=== PATIENT | female | born 1950 | race Caucasian/White ===

== ENCOUNTER → 2018-06-11 13:55 | Outpatient (CLI) | payer OTHER, SELFPAY ==
[2018-06-11 17:46] LABS: TSH w/ Reflex to FT4 3.81 uIU/mL (0.47-4.68)
== END ==
PROVIDERS: PCP Family Medicine; Visit Provider Family Medicine
DX: R79.89 Other specified abnormal findings of blood chemistry (principal)
CPT/HCPCS: 84443

== ENCOUNTER → 2018-10-31 11:44 | Outpatient (CLI) | payer OTHER, SELFPAY ==
--- NOTE | 2018-10-31 | DI.MG.S_ITS ---
BILATERAL DIGITAL SCREENING MAMMOGRAM 3D/2D WITH CAD: 10/31/2018 CLINICAL: Routine screening. Family history of breast cancer. Comparison is made to exams dated: 11/11/2016 mammogram, 08/31/2015 mammogram, and 04/02/2013 mammogram - [facility]. The tissue of both breasts is heterogeneously dense. This may lower the sensitivity of mammography. Current study was also evaluated with a Computer Aided Detection (CAD) system. No significant masses, calcifications, or other findings are seen in either breast. There has been no significant interval change. IMPRESSION: NEGATIVE There is no mammographic evidence of malignancy. A 1 year screening mammogram is recommended. This exam was interpreted at Station ID: [id number]. NOTE: For mammograms, a report in lay terms will be sent to the patient. Approximately 15% of breast malignancies will not be visualized mammographically. In the management of a palpable breast mass, a negative mammogram must not discourage biopsy of a clinically suspicious lesion. Electronically Signed By: Rajesh horner/laquita:10/31/2018 16:44:43 letter sent: Normal Exam ACR BI-RADS Category 1: Negative 3341F
== END ==
PROVIDERS: PCP Family Medicine; Visit Provider Family Medicine
DX: Z12.31 Encounter for screening mammogram for malignant neoplasm of breast (principal); Z80.3 Family history of malignant neoplasm of breast
CPT/HCPCS: 77063; 77067

== ENCOUNTER → 2019-11-09 14:03 | Outpatient (CLI) | payer OTHER, SELFPAY ==
--- NOTE | 2019-11-09 | DI.MG.S_ITS ---
BILATERAL DIGITAL SCREENING MAMMOGRAM 3D/2D WITH CAD: 11/09/2019 CLINICAL: Routine screening. Family history of breast cancer. Comparison is made to exams dated: 10/31/2018 mammogram, 11/11/2016 mammogram, and 08/31/2015 mammogram - [facility]. The tissue of both breasts is heterogeneously dense. This may lower the sensitivity of mammography. Current study was also evaluated with a Computer Aided Detection (CAD) system. No significant masses, calcifications, or other findings are seen in either breast. There has been no significant interval change. IMPRESSION: NEGATIVE There is no mammographic evidence of malignancy. A 1 year screening mammogram is recommended. This exam was interpreted at Station ID: [id number]. NOTE: For mammograms, a report in lay terms will be sent to the patient. Approximately 15% of breast malignancies will not be visualized mammographically. In the management of a palpable breast mass, a negative mammogram must not discourage biopsy of a clinically suspicious lesion. Electronically Signed By: Rajesh horner/laquita:11/12/2019 14:04:51 letter sent: Normal Exam ACR BI-RADS Category 1: Negative 3341F
== END ==
PROVIDERS: Family Provider Physician Assistant; PCP Family Medicine; Visit Provider Family Medicine
DX: Z12.31 Encounter for screening mammogram for malignant neoplasm of breast (principal)
CPT/HCPCS: 77063; 77067

== ENCOUNTER → 2020-06-27 13:33 | Outpatient (CLI) | payer MEDICARE, SELFPAY ==
[2020-06-28 17:04] LABS: COVID19 Sendout Not Detected (Not Detect)
== END ==
PROVIDERS: Family Provider Physician Assistant; PCP Family Medicine; Visit Provider Physician Assistant
DX: Z11.59 Encounter for screening for other viral diseases (principal)
CPT/HCPCS: 87635

== ENCOUNTER 2020-06-30 13:11 | Day surgery (SDC) | payer MEDICARE, SELFPAY ==
[2020-06-30] MEDS: SODIUM CHLORIDE 0.9% 1,000 ML 200 ML IV (13:38)
[2020-06-30 13:43] VITALS: BP 144/85; PULSE 68; RESP 20; TEMP 36.8; O2SAT 98; BMI 27.6
--- NOTE | 2020-06-30 14:21 | PM.HP.1 ---
History of Present Illness History of Present Illness Date Patient Seen: 06/30/20 Time Patient Seen: 14:52 Chief complaint: SCREENING COLONOSCOPY Narrative: This is a 70-year-old woman with history of screening colonoscopy 10 years ago, which was reported as normal. She denies any symptoms of blood in the stool, dark colored stool, unexplained abdominal pain, or unexplained weight loss. She otherwise feels she is in good health other than some sleep disturbance, and possible sleep apnea. ROS Thirteen system review is otherwise negative other than as mentioned below and in HPI. PE: GENERAL: Well groomed and cooperative. Appears stated age. Answers questions promptly and appropriately. Vital signs noted. HENT: Normocephalic, atraumatic. Hearing intact. EYES: Conjunctiva pink, sclera white, no periorbital swelling. CARDIOVASCULAR: Regular rate. No pedal edema. RESPIRATORY: Non-tachypneic, breathing comfortably on room air. GASTROINTESTINAL: Abdomen soft and non-distended GENITALURINARY: No flank tenderness. MUSCULOSKELETAL: Equal tone and mass bilaterally. SKIN: Warm, dry, soft, appropriate color for ethnicity. No other lesions, rashes, or wounds. NEURO: Alert and Oriented X 3. No gross sensory deficits, or cognitive issues. PSYCH: Appropriate affect and mood. Patient History Medical History Chicken pox (Resolved 1953) Chronic back pain (Chronic 2013) CTS (carpal tunnel syndrome) (Chronic) Depression (Chronic 1988) Fractures (Resolved) Genital warts (Resolved 1978) Herpes (Chronic 1981) History of hysterosalpingogram (Resolved ~1987) History of one miscarriage (Resolved 1989) History of one miscarriage (Resolved 1988) Infertility (Chronic 1985) Lumbar spinal stenosis (Chronic 2007) Measles (Resolved 1954) Mumps (Resolved) Rubella (Resolved) Vertigo (Resolved 1997) Surgical History Anesthesia (Resolved) History of tonsillectomy (Resolved 1977) Family & Social History Family History Father Congestive heart failure Prostate cancer Kidney failure Mother Essential hypertension Heart disease Grandfather No problems noted. Grandmother No problems noted. Grandfather Heart attack Grandmother No problems noted. Brother Alcoholism Brother Arthritis Skin cancer Depression Colon polyps Sister Colon polyps Depression Breast lump Social History: household members none lives independently Yes caregiver/support person No Tobacco & Substance use: Smoking Status Former smoker alcohol intake current alcohol intake frequency 0-2 drinks per day Substance Use Type marijuana Meds Home Medications and Allergies Home Medications Medication Instructions Recorded Confirmed Type [VITAMIN D3] 500 iu PO TID #0 06/20/16 06/23/20 History fluoxetine 40 mg capsule 40 mg PO DAILY 06/11/18 06/30/20 History methylphenidate HCl 10 mg biphasic 20 mg PO DAILY cap 01/14/20 06/30/20 History 50-50 capsule,extended release valacyclovir 1 gram tablet 1,000 mg PO QDAY #90 tab 06/23/20 06/30/20 Rx sodium,potassium,mag sulfates 17.5 177 ml PO DAILY #354 ml 06/24/20 Rx gram-3.13 gram-1.6 gram oral soln Allergies Allergy/AdvReac Type Severity Reaction Status Date / Time No Known Drug Allergies Allergy Verified 06/30/20 14:01 Exam Vital Signs (past 8 hours): - 06/30/20 13:43 Temperature 98.2 F Pulse Rate 68 Respiratory Rate 20 Blood Pressure 144/85 H Pulse Oximetry 98 Oxygen Delivery Method Room Air Assessment & Plan Assessment and plan (1) At average risk for colon cancer: Status: Acute Assessment & Plan narrative: Risks and benefits of screening colonoscopy and possible polypectomy were discussed with the patient including risk of bleeding, perforation, need for additional procedures, risks of anesthesia. The patient desires to proceed with the colonoscopy procedure. COVID-19 COVID-19 status: Negative Result date/Date tested (Pos, Neg/Pending): 06/27/20 Time Spent With Patient Time with patient: 15-24 minutes Quality VTE Deep Vein Thrombosis/Pulmonary Embolism Present on Admission: No
[2020-06-30] MEDS: MIDAZOLAM 5 MG/5 ML VIAL IV ×3 (15:00→15:07)
[2020-06-30] MEDS: fentaNYL 250 MCG/5 ML INJ IV ×2 (15:00→15:05)
--- NOTE | 2020-06-30 15:30 | PM.OP.ENDO ---
Operative Date/Time/Diagnoses Date of procedure: 06/30/20 Time of procedure: 15:30 Pre-op diagnosis: Average risk for colon cancer Post-op diagnosis: other (single benign appearing polyp at 35cm, diverticulosis) Procedure & Clinicians Study performed: Colonoscopy, procedural sedation performed by the endoscopist, polypectomy with cold snare Same procedure as scheduled: Yes Indications: Average risk for colon cancer, last colonoscopy 10 years ago Surgeon: Rhianna Long Procedure Notes SCOAP/Timeout: Performed Procedure in detail: The patient was brought to the room and placed in left lateral decubitus position with all bony prominences padded. A time-out was performed and then the patient was given procedural sedation starting with 2 mg of Versed and 100 mcg of fentanyl. Total of 4 mg of Versed and 150 micro g of fentanyl were given for the entire procedure. Vitals were monitored throughout the procedure. Her heart rate and blood pressure remained normal. The patient had multiple episodes of apnea during the procedure, and required a nasal trumpet in order to maintain her oxygen saturation. Once adequately sedated, the procedure was begun. A rectal exam was performed revealing no abnormalities. The colonoscope was then introduced to the rectum and advanced to the cecum in the usual fashion. The cecum was identified by the appendiceal orifice, the mucosal tri-fold, and the ileocecal valve. The scope was then retracted while rotating side to side and examining each mucosal fold. Moderate diverticulosis was seen in the descending and sigmoid colon. There was a small polyp sitting between 2 diverticula, which was removed with cold snare. The polyp removed but not retrieved, as it fell into the colon after it was snared off, and could not be found. After traversing the colon multiple times looking for it, we ultimately decided to discontinue the procedure as the patient was having episodes of apnea and the polyp appeared very early abnormality. At the conclusion of the procedure retroflexion was performed and small grade 1-2 internal hemorrhoids without stigmata of bleeding were seen. The scope was then withdrawn from the rectum the procedure was concluded. The patient tolerated the procedure well and was transferred to the PACU in stable condition. Scope withdrawal time: 17 Sedation minutes: 29 Findings: diverticulosis and polyp Specimen(s): none sent Complications: none Impression: Single mine appearing polyp, moderate diverticulosis throughout the descending and sigmoid colon Post-procedure Recommendations: Colonscopy in 5 years Follow up: as needed Disposition: PACU
[2020-06-30 15:38] VITALS: BP 172/95; PULSE 61; RESP 14; TEMP 36.7; O2SAT 96
[2020-06-30 15:42] VITALS: BP 143/80; PULSE 59; RESP 14; O2SAT 96
[2020-06-30 15:56] VITALS: BP 122/71; PULSE 67; RESP 14; TEMP 35.8; O2SAT 96
== END 2020-06-30 16:19 | disposition home or self-care (01) ==
PROVIDERS: Family Provider Physician Assistant; PCP Family Medicine; Referring Provider Family Medicine; Visit Provider Surgery
PROC: 0DJD8ZZ Inspection of Lower Intestinal Tract, Via Natural or Artificial Opening Endoscopic (ICD-10-PCS; CPT 45378; principal; 2020-06-30 14:30)
DX: Z12.11 Encounter for screening for malignant neoplasm of colon (principal); K57.30 Diverticulosis of large intestine without perforation or abscess without bleeding
CPT/HCPCS: 45385; 99152; 99153; J2250; J3010

== ENCOUNTER → 2020-07-15 09:13 | Outpatient (CLI) | payer MEDICARE, SELFPAY | PROVIDERS: Family Provider Physician Assistant; PCP Family Medicine; Referring Provider Family Medicine; Visit Provider Family Medicine | DX: M85.851 Other specified disorders of bone density and structure, right thigh (principal); Z78.0 Asymptomatic menopausal state; Z87.891 Personal history of nicotine dependence | CPT/HCPCS: 77080 ==

== ENCOUNTER → 2020-11-21 14:43 | Outpatient (CLI) | payer MEDICARE, SELFPAY ==
--- NOTE | 2020-11-21 | DI.MG.S_ITS ---
BILATERAL DIGITAL SCREENING MAMMOGRAM 3D/2D WITH CAD: 11/21/2020 CLINICAL: Routine screening. Family history of breast cancer. Comparison is made to exams dated: 11/09/2019 mammogram, 10/31/2018 mammogram, and 11/11/2016 mammogram - [facility]. There are scattered fibroglandular elements in both breasts. Current study was also evaluated with a Computer Aided Detection (CAD) system. No significant masses, calcifications, or other findings are seen in either breast. There has been no significant interval change. IMPRESSION: NEGATIVE There is no mammographic evidence of malignancy. A 1 year screening mammogram is recommended. This exam was interpreted at Station ID: [id number]. NOTE: For mammograms, a report in lay terms will be sent to the patient. Approximately 15% of breast malignancies will not be visualized mammographically. In the management of a palpable breast mass, a negative mammogram must not discourage biopsy of a clinically suspicious lesion. Electronically Signed By: Nicole estrada/laquita:11/23/2020 09:29:06 letter sent: Normal Exam ACR BI-RADS Category 1: Negative 3341F
== END ==
PROVIDERS: Family Provider Physician Assistant; PCP Family Medicine; Referring Provider Family Medicine; Visit Provider Family Medicine
DX: Z12.31 Encounter for screening mammogram for malignant neoplasm of breast (principal); Z80.3 Family history of malignant neoplasm of breast
CPT/HCPCS: 77063; 77067

== ENCOUNTER → 2021-04-27 15:42 | Outpatient (CLI) | payer MEDICARE, SELFPAY ==
--- NOTE | 2021-04-27 15:44 | DI.RAD.S_ITS ---
PROCEDURE: XR CHEST 2V INDICATIONS: cough TECHNIQUE: 2 views of the chest were acquired. COMPARISON: None. FINDINGS: Surgical changes and devices: None. Lungs and pleura: Lungs are clear. No pleural effusions or pneumothorax. Mediastinum: Mediastinal contours are normal. Heart size is normal. Bones and chest wall: No suspicious bony abnormalities. Soft tissues appear unremarkable. IMPRESSION: No acute pulmonary process. Dictated by: Nory Collins M.D. on 04/27/2021 at 16:21 Approved by: Nory Collins M.D. on 04/27/2021 at 16:21
== END ==
PROVIDERS: Family Provider Physician Assistant; PCP Family Medicine; Referring Provider Family Medicine; Visit Provider Family Medicine
DX: R05 Cough (principal)
CPT/HCPCS: 71046

== ENCOUNTER → 2023-08-15 09:18 | Outpatient (CLI) | payer MEDICARE, SELFPAY ==
--- NOTE | 2023-08-15 09:20 | DI.RAD.S_ITS ---
PROCEDURE: XR CHEST 2V INDICATIONS: chronic cough TECHNIQUE: 2 views of the chest were acquired. COMPARISON: [facility], CR, XR CHEST 2V, 04/27/2021, 15:45. FINDINGS: Surgical changes and devices: None. Lungs and pleura: No dense consolidation. No pleural effusion. Mediastinum: Mediastinal contours are normal. Heart size is normal. Bones and chest wall: No suspicious bony abnormalities. Soft tissues appear unremarkable. IMPRESSION: No acute radiographic abnormality. Dictated by: Raghav Lambert M.D. on 08/15/2023 at 14:16 Approved by: Raghav Lambert M.D. on 08/15/2023 at 14:17
[2023-08-15 11:08] LABS: Alanine Aminotransferase 40 IU/L (<35); Albumin 4.5 g/dL (3.5-5.0); Albumin Globulin Ratio 1.6 (1.0-2.8); Alkaline Phosphatase 93 U/L (38-126); Aspartate Aminotransferase 35 IU/L (14-36); BUN Creatinine Ratio 24.7 (6-22); Bilirubin Total 0.7 mg/dL (0.2-1.3); Blood Urea Nitrogen 19 mg/dL (7-17); Calcium 9.5 mg/dL (8.4-10.2); Carbon Dioxide 26 mmol/L (22-32); Chloride 103 mmol/L (98-107); Cholesterol 295 mg/dL (140-199); Estimated Glomerular Filt Rate > 60 mL/min (>60); Globulin 2.8 g/dL (1.7-4.1); Glucose 114 mg/dL (80-110); HEMOLYSIS < 15 (0-50); Potassium 4.2 mmol/L (3.4-5.1); Sodium 138 mmol/L (137-145); Total Protein 7.3 g/dL (6.3-8.2); Triglycerides 113 mg/dL (35-150)
[2023-08-15 11:15] LABS: HDL Cholesterol 105 mg/dL (40-60); LDL Cholesterol Calculated 167 mg/dL (<100)
[2023-08-15 11:35] LABS: Thyroid Stimulating Hormone 4.09 uIU/mL (0.47-4.68)
== END ==
PROVIDERS: Family Provider Physician Assistant; PCP Family Medicine; Referring Provider Family Medicine; Visit Provider Family Medicine
DX: E78.5 Hyperlipidemia, unspecified (principal); R19.7 Diarrhea, unspecified; R05.3 Chronic cough
CPT/HCPCS: 36415; 71046; 80053; 80061; 84443

== ENCOUNTER → 2023-11-22 08:48 | Outpatient (CLI) | payer OTHER, SELFPAY ==
[2023-11-22 09:53] LABS: Hemoglobin A1C% w Est Avg Glu 5.6 % (4.0-6.0)
== END ==
LOC: LAB 08:50
PROVIDERS: Family Provider Physician Assistant; PCP Family Medicine; Referring Provider Family Medicine; Visit Provider Family Medicine
DX: R73.9 Hyperglycemia, unspecified (principal)
CPT/HCPCS: 36415; 83036

== ENCOUNTER → 2023-11-22 09:18 | Outpatient (CLI) | payer OTHER, SELFPAY ==
--- NOTE | 2023-11-22 09:42 | DI.US.S_ITS ---
PROCEDURE: US ABDOMEN LIMITED INDICATIONS: RIGHT UPPER QUADRANT PAIN TECHNIQUE: Real-time focused scanning was performed of the abdomen, with image documentation. COMPARISON: None. FINDINGS: Numerous gallstones are present in the gallbladder. There is no gallbladder wall thickening or pain on examination. Liver has a normal echo pattern without focal mass. Visualized portions the pancreas are unremarkable. No dilated ducts. Common bile duct measures 4.8 mm, tapering to 2.4 mm at the level of the common hepatic duct. No right hydronephrosis. Grossly normal right kidney. IMPRESSION: Cholelithiasis. Otherwise unremarkable right upper quadrant ultrasound. Dictated by: Rao Mahmood M.D. on 11/22/2023 at 13:28 Approved by: Rao Mahmood M.D. on 11/22/2023 at 13:31
== END ==
PROVIDERS: Family Provider Physician Assistant; PCP Family Medicine; Referring Provider Family Medicine; Visit Provider Family Medicine
DX: K80.20 Calculus of gallbladder without cholecystitis without obstruction (principal); K82.9 Disease of gallbladder, unspecified; R73.9 Hyperglycemia, unspecified
CPT/HCPCS: 36415; 76705; 83036

== ENCOUNTER → 2024-01-23 07:27 | Outpatient (CLI) | payer OTHER, SELFPAY ==
--- NOTE | 2024-01-23 07:30 | DI.NM.S_ITS ---
PROCEDURE: NM HIDA WITH CCK PHARMACEUTICAL: 5 mCi Tc-99m mebrofenin IV; 1.5 mcg CCK IV. INDICATIONS: RUQ pain TECHNIQUE: Following intravenous administration of Tc-99m mebrofenin, sequential anterior abdominal images were obtained. To evaluate the contractile response of the gallbladder in response to Cholecystokinin (CCK), sincalide (0.02 ?g/kg) was administered by slow intravenous infusion approximately 60 minutes after the administration of the radiopharmaceutical. Sequential imaging was continued for 30 minutes after the start of CCK infusion. Gallbladder ejection fraction was calculated. COMPARISON: None. FINDINGS: Biliary scan: There is normal tracer uptake and excretion by the liver. There is normal visualization of the intrahepatic ducts, common bile duct, and gallbladder. There is normal tracer transit into the duodenum. CCK stimulation: There is nonpainful contractile response of the gallbladder to CCK infusion. The calculated gallbladder ejection fraction is 20% ; normal values are above 35%. It has been shown that any patient abdominal pain after CCK administration is related to the rate of CCK injection, rather than to any underlying gallbladder disease (Clinical Nuclear Medicine 2012; 37: 63-70. Journal of Nuclear Medicine 2014; 55: 1-9). IMPRESSION: Decreased ejection fraction at 20% with normal visualization of the gallbladder. Dictated by: Nory Collins M.D. on 01/23/2024 at 22:28 Approved by: Nory Collins M.D. on 01/23/2024 at 22:29
== END ==
LOC: NUCM 07:28
PROVIDERS: Family Provider Physician Assistant; PCP Family Medicine; Referring Provider Family Medicine; Visit Provider Family Medicine
DX: R10.11 Right upper quadrant pain (principal)
CPT/HCPCS: 78227; A9537; J2805

== ENCOUNTER 2024-04-09 06:22 | Day surgery (SDC) | payer OTHER, SELFPAY ==
[2024-04-02 12:11] VITALS: BMI 26.3
[2024-04-09] VITALS (8 sets, daily range): BP systolic 119–147; BP diastolic 47–82; PULSE 59–79; RESP 14–21; TEMP 36.1–36.4; O2SAT 93–99; BMI 25.4
--- NOTE | 2024-04-09 | PATH_ITS ---
[facility] Accession Number: [id number] No. of containers..01 Tissue . 01 Material submitted: . gallbladder - GALLBLADDER . 01 Diagnosis: GALLBLADDER, CHOLECYSTECTOMY: Chronic cholecystitis and cholelithiasis. [facility] 04/16/2024 1008 Local . 01 Electronically signed: . Jeniffer Ingram MD, Pathologist NPI- [id number] . 01 Gross description: . Received in formalin with two identifiers and gallbladder, is an intact gallbladder 6.5 x 2.6 x 2.3 cm with an unremarkable external surface. The cystic duct margin is inked blue, and no pericystic lymph node is identified. The lumen contains multiple yellow bosselated calculi measuring up to 1.0 cm in greatest dimension located within but not grossly obstructing the cystic duct. The bile is dark green and mucoid. The mucosa is green and velvety with no yellow discoloration, polyps, or lesions identified. The michaels average 0.2 cm thick. [employer] sections to include the cystic duct margins and full thickness sections are submitted in cassette A1. ([id number]) /AISHWARYA 04/10/2024 0951 Local . 01 Pathologist provided ICD-10: K80.10 . 01 CPT . 935968 Specimen Comment: A courtesy copy of this report has been sent to [phone] Performed at: [address] [id number] MD Rajesh Flannery MD Phone: [phone]
[2024-04-09] MEDS: LACTATED RINGERS 1,000 ML 42 ML IV (06:58)
[2024-04-09] MEDS: CEFAZOLIN 2 GM/100 ML PREMIX 100 ML IV (07:27)
[2024-04-09] MEDS: ACETAMINOPHEN 325 MG TABLET 975 MG PO (07:36)
--- NOTE | 2024-04-09 07:39 | PM.PREOP ---
Pre-operative Note COVID-19 COVID-19 status: Not tested Interval Note History & Physical reviewed/Exam performed by Physician: Yes Changes to H&P: No ASA Class (for procedural sedation): II
[2024-04-09] MEDS: BUPIVACAINE 0.5% (PF) 30 ML, EPINEPHrine 0.15 MG INJ (08:29)
--- NOTE | 2024-04-09 08:41 | PM.OP.1 ---
Operative Date/Time/Diagnoses Date of procedure: 04/09/24 Time of procedure: 08:41 Pre-op diagnosis: Symptomatic cholelithiasis Post-op diagnosis: same Procedure & Clinicians Procedure: Laparoscopic cholecystectomy Same procedure as scheduled: Yes Surgeon: Paco Osorio Senior Network Systems Engineer: Cleve Dominique Anesthesia Type: General Operative Notes Procedure in detail: The patient was given preoperative antibiotics. The patient was brought to the operating room and placed on the table in the supine position. General endotracheal anesthesia was induced. The abdomen was prepped and draped. A time-out was performed. We made a 1 cm infraumbilical incision. We dissected down to the base of the umbilical stalk using cautery. We grasped the umbilical stalk with a Uday clamp to elevate the abdominal wall. We scored the fascia in the midline with cautery. We pierced the peritoneum with a Peon clamp. The Roxy port was placed and the abdomen was insufflated to 15 mmHg. A 5 mm 30 degree laparoscopic was inserted. There was no evidence of any injury from the entry. Next, we placed 5 mm ports in the subxiphoid position and right upper quadrant at the midclavicular line and anterior axillary line. The patient was then positioned in reverse Trendelenburg and the table was tilted to the left. The gallbladder was grasped at the dome and retracted cephalad. There was minimal inflammation and no adhesions. We then dissected the cystic structures with a combination of hook cautery and blunt dissection. We obtained a critical view. We placed clips on the cystic duct and artery and divided the cystic duct and artery sharply between the clips. The gallbladder was then dissected off the liver and placed in a specimen retrieval bag. We irrigated the right upper quadrant and all the aspirate returned clear. We then removed the 5 mm ports under direct vision we removed the Roxy port. We then injected some local into the fascia and closed the fascia with 2 interrupted 0 Vicryl sutures. The skin incisions were closed with 4-0 Monocryl and Steri-Strips were applied. Band-Aids were applied over the Steri-Strips. EBL: 10 mL Specimen: Gallbladder and contents Cleve FRANK provided assistance with exposure, retraction and closure of incisions. Post-operative Condition: stable Disposition: PACU
[2024-04-09] MEDS: OXYCODONE IR 5 MG TABLET PO (09:11)
== END 2024-04-09 09:45 | disposition home or self-care (01) ==
PROVIDERS: Family Provider Physician Assistant; PCP Family Medicine; Referring Provider Surgery; Visit Provider Surgery
PROC: 0FT44ZZ Resection of Gallbladder, Percutaneous Endoscopic Approach (ICD-10-PCS; CPT 47562; principal; 2024-04-09 07:45)
DX: K80.10 Calculus of gallbladder with chronic cholecystitis without obstruction (principal)
CPT/HCPCS: 47562; J0171; J0690; J1100; J2250; J2405; J2704; J3010

== ENCOUNTER → 2024-04-26 07:13 | Outpatient (CLI) | payer OTHER, SELFPAY ==
[2024-04-26 08:25] LABS: Cholesterol 259 mg/dL (140-199); Triglycerides 90 mg/dL (35-150)
[2024-04-26 08:33] LABS: HDL Cholesterol 124 mg/dL (40-60); LDL Cholesterol Calculated 117 mg/dL (<100)
== END ==
LOC: LAB 07:13
PROVIDERS: Family Provider Physician Assistant; PCP Family Medicine; Referring Provider Family Medicine; Visit Provider Family Medicine
DX: E78.5 Hyperlipidemia, unspecified (principal)
CPT/HCPCS: 36415; 80061

== ENCOUNTER → 2024-09-07 10:42 | Outpatient (CLI) | payer OTHER, SELFPAY ==
--- NOTE | 2024-09-07 | DI.MG.S_ITS ---
BILATERAL DIGITAL SCREENING MAMMOGRAM 3D/2D WITH CAD: 09/07/2024 CLINICAL: Routine screening. Family history of breast cancer. Comparison is made to exams dated: 11/21/2020 mammogram, 11/09/2019 mammogram, 10/31/2018 mammogram, and 11/11/2016 mammogram - [facility]. There are scattered areas of fibroglandular density (category b / 25%-50% glandular tissue). Current study was also evaluated with a Computer Aided Detection (CAD) system. No significant masses, calcifications, or other findings are seen in either breast. There has been no significant interval change. IMPRESSION: NEGATIVE There is no mammographic evidence of malignancy. A 1 year screening mammogram is recommended. Based on the Tyrer Cuzick model (a risk assessment model) the patient's lifetime risk is 3.8% and her 10 year risk is 3.1%. According to the ACR, ACS, and NCCN guidelines, an annual breast MRI exam along with mammogram is recommended if the patient's lifetime risk is 20% or greater. This exam was interpreted at Station ID: [id number]. NOTE: For mammograms, a report in lay terms will be sent to the patient. Approximately 15% of breast malignancies will not be visualized mammographically. In the management of a palpable breast mass, a negative mammogram must not discourage biopsy of a clinically suspicious lesion. Electronically Signed By: Jero miller/laquita:09/07/2024 12:41:35 letter sent: Normal Exam ACR BI-RADS Category 1: Negative
== END ==
PROVIDERS: Family Provider Physician Assistant; PCP Family Medicine; Referring Provider Family Medicine; Visit Provider Family Medicine
DX: Z12.31 Encounter for screening mammogram for malignant neoplasm of breast (principal); Z80.3 Family history of malignant neoplasm of breast
CPT/HCPCS: 77063; 77067

== ENCOUNTER → 2024-10-09 10:39 | Outpatient (CLI) | payer OTHER, SELFPAY ==
--- NOTE | 2024-10-09 10:41 | DI.RAD.S_ITS ---
PROCEDURE: XR DEXA AXIAL SKELETON INDICATIONS: osteoporosis screening COMPARISON: [facility], KENZIE, XR DEXA AXIAL SKELETON, 07/15/2020, 9:49. FINDINGS: Lumbar Spine: Bone mineral density 1.13 g/cm2, T score 0.8, previously 1 point. Left Hip: Bone mineral density 0.90 g/cm2, T score -0.3, previously -0.8. Left Femoral Neck: Bone mineral density 0.77 g/cm2, T score -0.7, previously negative. Right Hip: Bone mineral density 0.91 g/cm2, T score -0.2, previously -0.3. Right Femoral Neck: Bone mineral density 0.78 g/cm2, T score -0.6, previously -1 Fracture Risk Calculation (when applicable): 10-year fracture risk of a major osteoporotic fracture 8.9 percent and of a hip fracture 1 percent. (T score greater or equal to -1.0 to: NORMAL) (T score from -1.1 to -2.4: OSTEOPENIA) (T score less than or equal to -2.5: OSTEOPOROSIS) IMPRESSION: T-scores are within normal limits. Follow-up guidelines as follows: Osteoporosis: Consider a repeat DEXA and Vertebral Fracture Assessment (VFA) exam in 2 years or sooner if medically necessary, to reassess this patient's status. Osteopenia: Consider a repeat DEXA in 2-3 years to reassess this patient's status, or if there is a new clinical indication. Normal: Consider a repeat DEXA in 5 years or sooner, or if there is a new clinical indication. All treatment decisions require clinical judgment and consideration of individual patient factors, including patient preferences, comorbidities, previous drug use, risk factors not captured in the FRAX model (e.g., frailty, falls, vitamin D deficiency, increased bone turnover, interval significant decline in bone density ) and possible under- or over-estimation of fracture risk by FRAX. In addition, the NOF Guide recommends that FDA-approved medical therapies be considered in postmenopausal women and men age >= 50 years with a: * Hip or vertebral (clinical or morphometric) fracture * T-score of <=-2.5 at the spine or hip * Ten-year fracture probability by FRAX of >= 3% for hip fracture or >=20% for major osteoporotic fracture. People with diagnosed cases of osteoporosis or at high risk for fracture should have regular bone mineral density tests. For patients eligible for Medicare, routine testing is allowed once every 2 years. The testing frequency can be increased to one year for patients who have rapidly progressing disease, those who are receiving or discontinuing medical therapy to restore bone mass, or have additional risk factors. Dictated by: Raghav Lambert M.D. on 10/09/2024 at 17:17 Approved by: Raghav Lambert M.D. on 10/09/2024 at 17:19
== END ==
PROVIDERS: Family Provider Physician Assistant; PCP Family Medicine; Referring Provider Family Medicine; Visit Provider Family Medicine
DX: Z13.820 Encounter for screening for osteoporosis; Z78.0 Asymptomatic menopausal state
CPT/HCPCS: 77080

== ENCOUNTER → 2025-01-03 12:15 | Outpatient (CLI) | payer MEDICARE, SELFPAY ==
[2025-01-03 12:48] LABS: Add Manual Diff / Slide Review NO; Basophils Absolute Auto 0 /uL (0-100); Basophils Percent Auto 0.8 % (0-2); Eosinophils Absolute Auto 200 /uL (0-450); Eosinophils Percent Auto 3.2 % (2-4); Hematocrit 45.8 % (36-46); Hemoglobin 15.1 g/dL (12.0-16.0); Lymphocytes Absolute Auto 1400 /uL (1100-4500); Lymphocytes Percent Auto 25.8 % (25-40); Mean Corpuscular Volume 90.9 fL (80-100); Monocytes Absolute Auto 400 /uL (0-900); Monocytes Percent Auto 7.2 % (3-14); Neutrophils Absolute Auto 3500 /uL (1500-7000); Platelet Count 217 X10^3/uL (150-400); Red Blood Cell Count 5.04 X10^6/uL (4.0-5.2); Red Cell Distribution Width 14.4 % (11.6-14.8); White Blood Cell Count 5.6 X10^3/uL (4.5-11.0)
[2025-01-03 13:08] LABS: Alanine Aminotransferase 25 IU/L (<35); Albumin 4.9 g/dL (3.5-5.0); Albumin Globulin Ratio 1.8 (1.0-2.8); Alkaline Phosphatase 91 U/L (38-126); Aspartate Aminotransferase 38 IU/L (14-36); BUN Creatinine Ratio 27.3 (6-22); Bilirubin Total 0.7 mg/dL (0.2-1.3); Blood Urea Nitrogen 24 mg/dL (7-17); Calcium 9.9 mg/dL (8.4-10.2); Carbon Dioxide 26 mmol/L (22-32); Chloride 106 mmol/L (98-107); Estimated Glomerular Filt Rate > 60 mL/min (>60); Globulin 2.7 g/dL (1.7-4.1); Glucose 92 mg/dL (80-110); HEMOLYSIS < 15 (0-50); Magnesium 2.1 mg/dL (1.6-2.3); Potassium 4.5 mmol/L (3.4-5.1); Sodium 139 mmol/L (137-145); Total Protein 7.6 g/dL (6.3-8.2)
[2025-01-03 13:38] LABS: TSH w/ Reflex to FT4 1.72 uIU/mL (0.47-4.68)
== END ==
PROVIDERS: Family Provider Physician Assistant; PCP Family Medicine; Referring Provider Family Medicine; Visit Provider Family Medicine
DX: R25.2 Cramp and spasm (principal); F32.A Depression, unspecified
CPT/HCPCS: 80053; 83735; 84443; 85025

== ENCOUNTER → 2025-09-04 15:19 | Outpatient (CLI) | payer MEDICARE, SELFPAY | PROVIDERS: PCP Family Medicine; Referring Provider Family Medicine; Visit Provider Family Medicine | DX: Z12.11 Encounter for screening for malignant neoplasm of colon (principal) | CPT/HCPCS: 82274 ==

== ENCOUNTER → 2025-09-09 16:38 | Outpatient (CLI) | payer MEDICARE, SELFPAY ==
--- NOTE | 2025-09-09 16:39 | DI.MG.S_ITS ---
MM screening mammo BI: 09/09/2025. BI-RADS: 1 CLINICAL: 75-year old female for bilateral screening mammogram. Tyrer-Cuzick lifetime risk of 2.8%. No personal or first-degree family history of breast cancer. PRIOR EXAMS 09/07/2024, 11/21/2020, 11/09/2019, 10/31/2018, MAMMOGRAPHY TECHNIQUE: 2D and 3D (tomosynthesis) digital mammographic views obtained, with additional images as needed for full coverage. Current study was also evaluated with a Computer Aided Detection (CAD) system. DENSITY B. There are scattered areas of fibroglandular density. MAMMOGRAPHY FINDINGS Bilateral: No suspicious mass, asymmetry, microcalcification, or other abnormality seen. IMPRESSION: * No evidence of malignancy. RECOMMENDATIONS Bilateral * Annual screening mammography. OVERALL ASSESSMENT CATEGORY BI-RADS-1: Negative. The [employer] recommends annual screening mammography beginning at age 40 for women with average risk of breast cancer. ELECTRONICALLY SIGNED: Jero Flanagan M.D. on 09/13/2025 at 10:14:28 AM PT Interpreting Station ID: [id number]
== END ==
LOC: MAMMO 16:38
PROVIDERS: PCP Family Medicine; Referring Provider Family Medicine; Visit Provider Family Medicine
DX: Z12.31 Encounter for screening mammogram for malignant neoplasm of breast (principal)
CPT/HCPCS: 77063; 77067